=== PATIENT | female | born 1950 | race Caucasian/White ===

== ENCOUNTER 2018-10-19 23:15 | Observation (INO) | payer MEDICARE ==
--- NOTE | 2018-10-19 23:55 | ED ---
HPI Chest Pain - HPI Summary HPI Summary: This patient is a 68 year old F brought to ED via EMS with a chief complaint of CP while walking at 2000 today. The CP is described as sharp, but not pressure, and was localized to about 2 inches in the left chest. The CP came suddenly while the patient was ambulating as she does daily but resolved slowly after 10 minutes of rest. Patient took baby aspirin. Patient had similar CP at 2230 while resting and lying down, which again resolved after 10-15 minutes. The patient rates the pain 0/10 in severity. Symptoms aggravated by ambulation. Symptoms alleviated by rest and baby aspirinx2, and she usually takes 1 baby aspirin a night. Patient denies SOB, diaphoresis, N/V. Patient previously had SOB years ago but was unable to complete stress tests and was diagnosed with a heart murmur. She had surgery to close a shunt, which resolved her SOB. PMHx of HTN, for which she takes 100mg Losartan, pre-diabetes, HLD. Patient drinks alcohol occasionally but does not smoke tobacco or use substances. FHx of HTN and FL from father, kidney failure from mother. - History of Current Complaint Chief Complaint: EDChestPainROMI Time Seen by Provider: 10/19/18 23:35 Hx Obtained From: Patient Onset/Duration: Started Hours Ago - 1999 and 0, Resolved Timing: Lasting Minutes - 10-15 Initial Severity: Moderate Current Severity: None Pain Intensity: 0 Pain Scale Used: 0-10 Numeric Chest Pain Location: Left Anterior - 2 inches Chest Pain Radiates: No Character: Sharp/Stabbing Aggravating Factor(s): Exertion Alleviating Factor(s): Rest, Medication - Aspirin Associated Signs and Symptoms: Positive: Chest Pain. Negative: Shortness of Breath, Diaphoresis, Nausea, Vomiting - Allergy/Home Medications Allergies/Adverse Reactions: Allergies Allergy/AdvReac Type Severity Reaction Status Date / Time Iaysylb-Lmo-Nln Reductase Allergy Mild See Comment Verified 10/20/18 00:23 Inhibitor Home Medications: Home Medications Aspirin 81 mg PO DAILY WITH MEAL 10/19/18 [History Confirmed 10/19/18] PMH/Surg Hx/FS Hx/Imm Hx Cardiovascular History: Reports: Hx Hypercholesterolemia, Hx Hypertension Musculoskeletal History: Denies: Hx Osteoporosis - Cancer History Hx Chemotherapy: No Hx Radiation Therapy: No - Surgical History Surgery Procedure, Year, and Place: c section Infectious Disease History: No Infectious Disease History: Denies: Traveled Outside the [place] in Last 30 Days - Family History Known Family History: Positive: Hypertension, Renal Disease, Other - FL - Social History Alcohol Use: Occasionally Hx Substance Use: No Substance Use Type: Reports: None Hx Tobacco Use: No Smoking Status (MU): Never Smoked Tobacco Review of Systems Negative: Skin Diaphoresis Positive: Chest Pain - Since resolved Negative: Shortness Of Breath Negative: Vomiting, Nausea All Other Systems Reviewed And Are Negative: Yes Physical Exam - Summary Physical Exam Summary: VITAL SIGNS: Reviewed. GENERAL: Patient is a well-developed and nourished female who is lying comfortable in the stretcher. Patient is not in any acute respiratory distress. HEAD AND FACE: No signs of trauma. No ecchymosis, hematomas or skull depressions. No sinus tenderness. EYES: PERRLA, EOMI x 2, No injected conjunctiva, no nystagmus. EARS: Hearing grossly intact. Ear canals and tympanic membranes are within normal limits. MOUTH: Oropharynx within normal limits. NECK: Supple, trachea is midline, no adenopathy, no JVD, no carotid bruit, no c- spine tenderness, neck with full ROM CHEST: Symmetric, no tenderness at palpation LUNGS: Clear to auscultation bilaterally. No wheezing or crackles. CVS: Regular rate and rhythm, S1 and S2 present, no murmurs or gallops appreciated. ABDOMEN: Soft, non-tender. No signs of distention. No rebound no guarding, and no masses palpated. Bowel sounds are normal. EXTREMITIES: FROM in all major joints, no edema, no cyanosis or clubbing. NEURO: Alert and oriented x 3. No acute neurological deficits. Speech is normal and follows commands. SKIN: Dry and warm Triage Information Reviewed: Yes Vital Signs On Initial Exam: Initial Vitals Temp Pulse Resp BP Pulse Ox 97.6 F 84 16 150/78 99 10/19/18 23:15 10/19/18 23:15 10/19/18 23:15 10/19/18 23:15 10/19/18 23:15 Vital Signs Reviewed: Yes Diagnostics - Vital Signs Vital Signs Temp Pulse Resp BP Pulse Ox 10/19/18 23:15 97.6 F 84 16 150/78 99 - Laboratory Result Diagrams: 10/20/18 00:10 10/20/18 00:10 Lab Statement: Any lab studies that have been ordered have been reviewed, and results considered in the medical decision making process. - Radiology CXR Radiology Interpretation Completed By: ED Physician Summary of Radiographic Findings: No acute processes. Pending official radiology report. - EKG 2320 Cardiac Rate: NL - 78 BPM EKG Rhythm: Sinus Rhythm Summary of EKG Findings: Sinus rhythm at 78 BPM, RBBB. Re-Evaluation - Re-Evaluation First Eval Re-Evaluation Time: 00:54 Comment: Discussed results with patient. Patient [place] be [place] [facility] [place] dx of [place] pain. Patient understands and agrees with this plan. Chest Pain Course/Dx - Course Course Of Treatment: This patient is a 68 year old F brought to ED via EMS with a chief complaint of CP while walking at 2000 today which resolved within 10 minutes. Patient had similar CP while lying down at 2230 that resolved in 15 minutes. Patient has history of heart murmur and shunt between coronary artery and pulmonary artery that was previously closed surgically. In the ED course, bloodwork was obtained. CXR revealed no acute processes. EKG revealed sinus rhythm at 78 BPM, RBBB. Patient's case was discussed with Dr. Meyers, hospitalist, who accepted the patient for admission to [facility] Patient will be admitted with dx of chest pain. Patient understands and agrees with this plan. - Chest Pain Differential Diagnosis/HQI/PQRI: Other: - Chest Pain - Diagnoses Provider Diagnoses: Chest pain - Provider Notifications Discussed Care Of Patient With: Colleen Meyers Time Discussed With Above Provider: 00:39 Instructed by Provider To: Other - Discussed patient's case with Dr. Meyers, hospitalist, who accepted the patient for admission to [facility] [place] dx of chest pain. Discharge - Sign-Out/Discharge Documenting (check all that apply): Patient Departure - Admit Patient Received Moderate/Deep Sedation with Procedure: No - Discharge Plan Condition: Stable Disposition: ADMITTED TO [facility] Referrals: Amalia Jonas MD [Primary Care Provider] - - Attestation Statements Document Initiated by Scribe: Yes Documenting Scribe: Kenneth Guerrero Provider For Whom Scribe is Documenting (Include Credential): Yuridia Miller MD Scribe Attestation: IKenneth, scribed for Yuridia Miller MD on 10/20/18 at 0058. Status of Scribe Document: Ready
[2018-10-20 00:28] LABS: Activated Partial Thrombo Time 34.3 seconds (26.0-36.3); INR 0.81 (0.82-1.09)
[2018-10-20 00:35] LABS: Albumin 4.3 g/dL (3.2-5.2); Albumin/Globulin Ratio 1.4 (1-3); BUN/Creatinine Ratio 31.9 (8-20); Calcium 9.8 mg/dL (8.6-10.3); EGFR African American 96.9 (>60); EGFR Non-African American 80.1 (>60); Potassium 3.4 mmol/L (3.5-5.0); Total Bilirubin 0.3 mg/dL (0.2-1.0); Total Protein 7.3 g/dL (6.4-8.9)
[2018-10-20 00:46] LABS: ABS Basophils 0.1 10^3/ul (0-0.2); ABS Eosinophils 0.4 10^3/ul (0-0.6); ABS Lymphocytes 2.9 10^3/ul (1.0-4.8); ABS Monocytes 0.7 10^3/ul (0-0.8); ABS Neutrophils 3.8 10^3/ul (1.5-7.7); Hematocrit 34 % (35-47); Hemoglobin 10.9 g/dL (12.0-16.0); Lymphocyte % 36.7 %; Mean Corpuscular HGB Conc 32 g/dL (31-36); Mean Corpuscular Hemoglobin 26 pg (27-31); Mean Corpuscular Volume 81 fL (80-97); Mean Platelet Volume 7.1 fL (7.4-10.4); Nucleated Red Blood Cells % 0.1; Platelet Count 393 10^3/uL (150-450); Red Blood Count 4.15 10^6 /uL (3.70-4.87); Red Cell Distribution Width 14 % (10.5-15); White Blood Count 7.9 10^3/uL (3.5-10.8)
[2018-10-20] MEDS ORDERED: Potassium Chlor TAB* 20 MEQ TAB.ER PO ONE ×2 (00:53→01:37)
[2018-10-20] MEDS ORDERED: Naproxen TAB* 250 MG PO PRN (01:35)
[2018-10-20] MEDS ORDERED: Oxybutynin XL TAB* 5 MG PO PRN (01:35)
[2018-10-20] MEDS ORDERED: Dextrose 50% Syringe 50 ML* 25 GM/50 ML SYRINGE IV PUSH PRN (03:29)
[2018-10-20] MEDS: Heparin VIAL(*) 5000 UNITS/ML VIAL (FIVE THOUSAND) SUBCUT SCH ×2 (06:31→15:29)
[2018-10-20 07:44] LABS: BUN/Creatinine Ratio 29.9 (8-20); Calcium 9.2 mg/dL (8.6-10.3); EGFR African American 105.3 (>60)
[2018-10-20] MEDS: Insulin LISPRO* 1 UNITS UNIT SUBCUT SCH ×2 (08:01→12:23)
[2018-10-20] MEDS ORDERED: Aspirin 81 mg CHEW TAB* 81 MG TAB.CHEW PO SCH (08:30)
[2018-10-20] MEDS ORDERED: Hydrochlorothiazide TAB* 25 MG PO SCH (09:00)
[2018-10-20] MEDS ORDERED: Cholecalciferol TAB* 1000 UNITS PO SCH (09:00)
[2018-10-20] MEDS ORDERED: Multivitamins/Minerals TAB PO SCH (09:00)
[2018-10-20] MEDS: Losartan TAB* 25 MG PO SCH ×2 (10:04→10:05)
--- NOTE | 2018-10-20 14:45 | ECHO ---
*[facility]* [place] [address] Fax #: [phone] Transthoracic Echocardiogram Patient: Tejeda, Height: 60 in / Mandie Strickland 152.4 cm : 1950 Weight: 185.6 lb / Study Date: 10/20/2018 84.4 kg Age: 68 BP: 134 / 78 Gender: F BMI/BSA: 36.3 kg/m^2 HR: 63 bpm / 1.81 m^2 *Deadener: * Marsha Shepherd RDCS RN *Referring Physician: * Colleen BrooksReading Physician: * Ang Hnakins MD Indications: Chest Pain, unspecified. History: Risk factors: Hypertension. Dyslipidemia. Repair of fistula between the left coronary artery and pulmonary artery. Conclusions Summary: 1. Left ventricle: The cavity size is normal. Wall thickness is mildly increased. Systolic function is normal. The estimated ejection fraction is 60-65%. Wall motion is normal. There are no regional wall motion abnormalities. 2. Mitral valve: There is trivial regurgitation. 3. Aortic valve: The valve is trileaflet. The leaflets are mildly thickened. There is trivial regurgitation. 4. Tricuspid valve: The valve is structurally normal. There is trivial regurgitation. 5. Pulmonic valve: The valve is structurally normal. 6. Pericardium, extracardiac: There is no pericardial effusion. 7. Study data: No prior study is available for comparison. Study data: Transthoracic echocardiogram. Procedure: Transthoracic echocardiography was performed. Image quality was fair. The study was technically limited due to body habitus. Complete 2D, spectral Doppler, and color flow Doppler. Patient status: Inpatient. Patient room number: 432. No prior study is available for comparison. Rhythm: Normal sinus rhythm. Findings Left ventricle: The cavity size is normal. Wall thickness is mildly increased. Systolic function is normal. The estimated ejection fraction is 60-65%. Wall motion is normal. There are no regional wall motion abnormalities. There is no consistent Doppler evidence of clinically significant diastolic dysfunction. Right ventricle: The cavity size is normal. Wall thickness is mildly increased. Systolic function is normal. Left atrium: The atrium is normal in size. Right atrium: The atrium is normal in size. Mitral valve: The leaflets are mildly thickened. There is no evidence of stenosis. There is trivial regurgitation. The peak diastolic gradient is 3.7 mm Hg. Aortic valve: The valve is trileaflet. The leaflets are mildly thickened. There is no evidence of stenosis. There is trivial regurgitation. The LVOT to aortic valve VTI ratio is 0.67. The ratio of LVOT to aortic valve peak velocity is 0.66. The ratio of LVOT to aortic valve mean velocity is 0.69. The mean systolic gradient is 7.0 mm Hg. The peak systolic gradient is 12.0 mm Hg. Tricuspid valve: The valve is structurally normal. There is no evidence of stenosis. There is trivial regurgitation. Pulmonic valve: The valve is structurally normal. There is no evidence of stenosis. There is trivial regurgitation. The peak systolic gradient is 2.0 mm Hg. Aorta: Aortic root: The aortic root is not dilated. Ascending aorta: The ascending aorta is not dilated. Aortic arch: The aortic arch is not dilated. Pericardium: There is no pericardial effusion. Pulmonary arteries: The main pulmonary artery is normal-sized. Systemic veins: Inferior vena cava: The vessel is normal in size. The respirophasic diameter changes are in the normal range (>= 50%). Measurements Left ventricle Value Ref Right atrium Value Ref DEVI, LAX 4.4 cm 3.8 - 5.2 ML dim, ES, A4C 3.7 cm 2.6 - 4.4 ESD, LAX 2.9 cm 2.2 - 3.5 SI dim, ES, A4C 4.5 cm 3.4 - 5.3 FS, LAX 34 % 27 - 45 PW, ED, LAX (H) 1.1 cm 0.6 - 0.9 Aortic valve Value Ref IVS/PW, ED 1 Francesca diam, ED 1.9 cm --------- E', lat francesca, TDI 10.0 cm/sec >=10.0 Peak v, S 1.7 m/sec --- ------ E/e', lat francesca, 10 Mean v, S 1.2 m/sec ------ --- TDI VTI, S 38.7 cm --------- E', med francesca, TDI 7.2 cm/sec >=7.0 Mean grad, S 7.0 mm Hg --- ------ E/e', med francesca, 13 Peak grad, S 12.0 mm Hg ------ --- TDI E', avg, TDI 8.6 cm/sec Mitral valve Value Ref E/e', avg, TDI 11 <=14 Peak E 0.96 m/sec --- ------ Peak A 1.21 m/sec --------- LVOT Value Ref Decel time 225 ms --------- Peak irineo, S 1.13 m/sec Peak grad, D 3.7 mm Hg --------- Mean irineo, S 0.83 m/sec Peak E/A ratio 0.8 --------- VTI, S 25.9 cm Peak grad, S 5 mm Hg Aortic root Value Ref Mean grad, S 3 mm Hg Root diam 2.7 cm <4.0 Ventricular septum Value Ref Ascending aorta Value Ref IVS, ED, LAX (H) 1.1 cm 0.6 - 0.9 AAo AP diam, S 3.0 cm --------- IVS, ED (H) 1.1 cm 0.6 - 0.9 Aortic arch Value Ref Right ventricle Value Ref Arch diam 2.5 cm --------- DEVI, LAX 2.5 cm DEVI minor ax, 2.8 cm 1.9 - 3.5 Decending aorta Value Ref A4C mid Kayla peak irineo 0.56 m/sec --------- Left atrium Value Ref Inferior vena cava Value Ref AP dim, ES 3.30 cm 2.70 - Diam 1.7 cm --------- 3.80 ML dim, A4C 3.7 cm SI dim, A4C 5.0 cm Vol/bsa, ES, 1-p 19 ml/m^2 11 - 40 A4C Vol/bsa, ES, 1-p 21 ml/m^2 13 - 40 A2C Vol/bsa, ES, A/L 22 ml/m^2 16 - 34 Legend: (L) and (H) cosme values outside specified reference range. Prepared and electronically signed by Ang Hankins MD 10/20/2018 14:45
--- NOTE | 2018-10-20 15:08 | HP ---
CC: Dr. Amalia Jonas; Dr. Rafi Ross, [facility] * HISTORY AND PHYSICAL: DATE OF ADMISSION: 10/20/18 TIME OF EVALUATION: 1:30 a.m. PRIMARY CARE PROVIDER: Dr. Amalia Jonas. ADMISSIONS NURSE: Dr. Rafi Ross from [facility]. CHIEF COMPLAINT: Chest pain. 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 The patient states she was in her usual state of health, had a dinner of chicken with vegetable mantilla that is not unusual for her. She states that she usually walks for 30 minutes after dinner and when she went to do it at this time she developed left-sided chest pain, 4/10 in intensity and no radiation, when she was walking for 5 minutes. She took an aspirin, she sat down and rested and the pain subsided after 10 to 15 minutes. She went to bed and told her that if the symptoms happen again she would come to the emergency room for further evaluation. Approximately 2-1/2 hours later when she was in bed , she had the same episode of pain and decided to come to the emergency room for further evaluation. She describes the pain as sharp with no alleviating or precipitating factors. She denies any recent trauma. No other significant physical exertion. There is no fever, chills, cough, nausea, vomiting, diarrhea, or urinary complaints. PAST MEDICAL HISTORY: 1. Coronary artery fistula, status post transcatheter closure done at the [facility]. The patient had a long-standing murmur and had developed worsening dyspnea on exertion. Workup done at [facility] was suspicious for a coronary artery fistula originating from the left coronary arterial system and terminating near the right ventricular outflow tract. The patient states that she had a procedure done at the [facility] and continues to follow at the [facility] at [facility]. 2. Type 2 diabetes. 3. Hypertension. 4. Obesity with a BMI of 34. 5. Diaphragmatic hernia. 6. Osteoporosis. 7. History of pulmonary tuberculosis, status post triple antibiotic therapy in 1983. MEDICATION LIST: 1. Aspirin 81 mg p.o. daily. 2. Vitamin D3 at 2000 units p.o. daily. 3. Premarin vaginal cream half an applicator vaginally. 4. Hydrochlorothiazide 25 mg p.o. daily. 5. Losartan 100 mg p.o. daily. 6. Metformin ER 1500 mg p.o. daily. 7. Multivitamins 1 tablet p.o. daily. 8. Naproxen/diphenhydramine 1 tablet p.o. b.i.d. p.r.n. pain. 9. Oxybutynin 5 mg p.o. t.i.d. as needed prior to trips. ALLERGIES: To STATINS. FAMILY HISTORY: Her father had a history of hypertension and MS and her mother had a history of renal failure. SOCIAL HISTORY: The patient is a retired physician (catering sales manager). No history of tobacco or drug use. She occasionally drinks wine. REVIEW OF SYSTEMS: A 14-point review of systems was performed and all the pertinent negative and positive findings are in the HPI. PHYSICAL EXAMINATION GENERAL: The patient is a pleasant lady, sitting up in the ED stretcher, in no acute distress. VITAL SIGNS: Temperature 98.5, heart rate is 70, respiratory rate is 16, oxygen saturation is 97% on room air, blood pressure 141/67. HEENT: Moist mucous membranes. CHEST: Breath sounds present bilaterally with no added sounds. CVS: Normal S1, S2. Regular rate and rhythm. ABDOMEN: Soft. Bowel sounds are present. EXTREMITIES: No edema. NEURO: She is alert, oriented x3. Able to move all 4 extremities. Face is symmetric. Speech is clear. DIAGNOSTIC STUDIES/LAB DATA: The patient had a CBC that showed WBC of 7.9, hemoglobin 10.9, hematocrit 34, platelets of 393 with 47% neutrophils. INR is 0.81. Chemistry showed a sodium of 135, potassium of 3.4, chloride of 98, bicarb 29, BUN 23, creatinine of 0.7, glucose of 108, calcium 9.8, magnesium 2. LFTs are negative. Troponin is 0 x2. BNP is 27. Chest x-ray is not yet officially read, but to my read it shows no acute pulmonary disease. EKG done on 10/19/18 at 11:20 p.m. shows sinus rhythm at 78 beats per minute with a right bundle branch block. There is no prior EKG to compare. 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 1. Chest pain, rule out acute coronary syndrome. The patient's first episode of pain was actually with exertion while she was walking her usual evening walk. The patient states that 2 days prior to admission she had gone uphill walking and had no chest pain, but felt a little more short of breath than usual. The second episode of pain happened at rest. The patient has no reproducible pain on palpation, she has had no recent trips, no complaints of lower extremity pain or edema. She will be admitted to the telemetry floor as observation and we will check serial troponins and serial EKGs. We will repeat her echocardiogram, but the patient requests that if she needs to have a stress test that her dairy farmworker, Dr. Ross, be contacted first. Clinic phone number is [phone]. She states that in the past she had difficulties with exercise stress test and he was planning to do a pharmacological stress test in the near future. At the time of my evaluation, the patient is already chest pain-free and we will continue her aspirin and monitor her on telemetry. 2. Hypertension. Blood pressure is controlled. We will continue hydrochlorothiazide and losartan. 3. Hypokalemia. We will replete. 4. Type 2 diabetes. We will hold metformin while in the hospital in case the patient needs a contrast study. She will have fingersticks a.c. h.s. with lispro sliding scale. 5. DVT prophylaxis: The patient has a score of 3 on the DVT Prophylaxis Risk Assessment Guide and she will be started on subcutaneous heparin. 6. Code status is full. TIME SPENT: Approximately 45 minutes was spent with the patient's interview, medical records review, physical examination to complete this admission, more than half of this time was spent [id number] with the patient and coordination of care. [id number]/[facility] #: [id number] ALEAH
[2018-10-20 15:27] VITALS: BP 123/68
--- NOTE | 2018-11-12 23:13 | DS ---
CC: Remberto Kitchen MD, Cardiology, [place], [place] * DISCHARGE SUMMARY: DATE OF ADMISSION: 10/19/18 DATE OF DISCHARGE: 10/20/18 DISCHARGE DIAGNOSES: 1. Chest pain, etiology uncertain. 2. History of hypertension. 3. Obesity. 4. Diaphragmatic hernia. 5. History of coronary artery fistula, status post transcatheter closure done at the [facility]. 6. Hyperlipidemia. 7. Impaired fasting glucose. 8. Right bundle-branch block. HISTORY: Mandie Tejeda is a 68-year-old woman admitted with chest pain. Please see the dictated admission note for details of the present illness, past medical history, family history, social and personal history, review of systems , and physical examination. DIAGNOSTIC STUDIES/LAB DATA: Laboratory: WBC 7.9, H and H 10.9/34, MCV 81, PLT 393,000. INR 0.81, PTT 34.3. Chemistries: Sodium 135, potassium 3.4, chloride 98, CO2 of 29, BUN and creatinine 23/0.72, glucose 108. Rest of the comprehensive metabolic panel was within normal limits. Repeat potassium was 4.0. Fingerstick blood sugars were 92 and 97. Troponins x3 were 0, 0, 0. Imaging: Chest x-ray on 10/19/18 showed no active cardiopulmonary disease. The Bochdalek hernia noted on previous CT abdomen, PA and lateral films is not well visualized in the current portable chest x-ray. EKG on 10/19/18 showed sinus rhythm, right bundle-branch block. EKG on showed sinus bradycardia, right bundle-branch block, borderline ST elevation in lateral leads; otherwise, no significant change. Transthoracic echocardiogram on 10/30/18 showed mildly thickened aortic valve leaflets, mildly increased wall thickness, EF normal. HOSPITAL COURSE: She had no further chest pain after admission. I discussed case with her mechanical handyman at [facility]. They recommended that she be discharged with further evaluation to be done there with stress nuclear perfusion test. She is being discharged home in improved condition. See discharge plan for medications. Acitivity as tolerated and usual diet. [id number]/[facility] #: [id number] MTDD
== END 2018-10-20 15:50 | disposition home or self-care (01) ==
LOC: ED 23:15 → MEDTELE 10-20 01:31
PROVIDERS: ADMIT Internal Medicine; ATTEND Internal Medicine Geriatric Medicine
DX: R07.9 Chest pain, unspecified (principal); I10 Essential (primary) hypertension; E78.00 Pure hypercholesterolemia, unspecified; E11.9 Type 2 diabetes mellitus without complications; E66.9 Obesity, unspecified; Z68.34 Body mass index [BMI] 34.0-34.9, adult; K44.9 Diaphragmatic hernia without obstruction or gangrene; M81.0 Age-related osteoporosis without current pathological fracture; Z79.82 Long term (current) use of aspirin
CPT/HCPCS: 36415; 71045; 80048; 80053; 83735; 83880; 84484; 85025; 85610; 85730; 93005; 93306; 96372; 99285; A9270-GY; G0378; J1644